=== PATIENT | female | born 1985 | race Hispanic/Latino ===

== ENCOUNTER 2017-10-19 07:49 | Emergency (ER) | payer OTHER ==
[~2017-10-19] VITALS: Ht 144.8 cm; Wt 65.0 kg
[~2017-10-19 07:49] MED LIST: BENADRYL 50MG C50 MG OR; BENADRYL1 CRE EX; CIPRO XR500 MG PO; CIPRO500 MG PO; CIPROFLOXACN250 MG PO; CIPROFLOXACN500 MG PO; CLARINEX5 MG OR; DAYQUIL OR; DEBROX6.5 % AD; DILAUDID 2MG2 MG/TA1 PO; FLOMAX0.4 M1 PO; KETOROLAC TROME10 MG PO; LORTAB 5-325 MG1 TAB PO; LORTAB 5/3255 MG PO; MEDDOSEPAK OR; NO; NO HOME MEDS; PRE-NATAL OR; STERAPRED DS10 MG OR; TAGAMET300 MG OR; THERAFL OR; TORADOL PO; ULTRAM50 M1 PO; ZITHROMAX500 MG PO; ZOFRAN ODT4 MG OR; ZOFRAN ODT4 MG SL
[2017-10-19 08:52] LABS: URINE BILIRUBIN - DIPSTICK NEGATIVE (NEGATIVE); URINE BLOOD DIPSTICK LARGE (NEGATIVE); URINE COLOR YELLOW; URINE GLUCOSE - DIPSTICK NEGATIVE (NEGATIVE); URINE KETONE NEGATIVE (NEGATIVE); URINE LEUK ESTERASE NEGATIVE (NEGATIVE); URINE NITRITE - DIPSTICK NEGATIVE (Negative); URINE PH 5.5 (4.5-8.0); URINE PROTEIN - DIPSTICK NEGATIVE (NEG-TRACE); URINE SPECIFIC GRAVITY 1.025; URINE UROBILINOGEN - DIPSTICK 0.2 E.U./dL (0.2)
[2017-10-19 08:54] LABS: URINE CLARITY SL CLOUDY
[2017-10-19 08:55] LABS: HEMATOCRIT 40.7 % (37.0-47.0); IMMATURE GRANULOCYTES 0.5 % (0.0-1.0); MEAN CELL VOLUME 86.4 fL CALC (80.0-100.0); MEAN CORPUSCULAR HGB 29.7 pG CALC (26.0-32.0); MEAN CORPUSCULAR HGB CONC 34.4 g/L CALC (32.0-36.0); NEUT# 5.78 thou/uL (2.00-7.15); RED BLOOD COUNT 4.71 mill/uL (4.20-5.60); RED CELL DISTRI WIDTH 12.3 % (11.5-15.5); URINE RBC 25-50 RBC/hpf (0-5)
[2017-10-19 08:57] LABS: ANION GAP 16 (6-22 (CALC)); BUN 10 mg/dL (7-17); BUN/CREATININE RATIO 17 (12-20 (CALC)); CARBON DIOXIDE 22 mmol/l (22-30); CHLORIDE 104 mmol/l (95-108); CREATININE 0.6 mg/dL (0.5-1.0); GFR > 60 ML/MIN (>=60 (CALC)); GFR FOR AFR.AMER. > 60 ML/MIN (>=60 (CALC)); POTASSIUM 3.6 mmol/l (3.5-5.1); SODIUM 138 mmol/l (137-146)
[2017-10-19] MEDS ORDERED: TRAMADOL HYDROC50 MG PO (10:15)
[2017-10-19] MEDS ORDERED: TAMSULOSIN0.4 MG PO (10:15)
[2017-10-19 10:30] VITALS: BP 118/65
== END 2017-10-19 10:30 | disposition home or self-care (01) | DRG 694 ==
LOC: ED 07:49
PROVIDERS: Family Medicine
DX: N20.1 Calculus of ureter (principal); Z87.442 Personal history of urinary calculi

== ENCOUNTER 2024-02-18 09:43 | Emergency (ER) | payer OTHER ==
[~2024-02-18] VITALS: Ht 144.8 cm; Wt 117.0 kg
[2024-02-18] VITALS (7 sets, daily range): BP systolic 106–118; BP diastolic 72–83
[~2024-02-18 09:43] MED LIST changes: +TAMSULOSIN0.4 MG PO; +TRAMADOL HYDROC50 MG PO
[2024-02-18] MEDS ORDERED: KETOROLAC TROMETHAMINE 30 MG/ML SDV IV ONE (10:00)
[2024-02-18 10:16] LABS: BASO% 0.4 % (0-3); EOS% 1.4 % (0-8); HEMATOCRIT 42.5 % (37.0-47.0); HEMOGLOBIN 14.3 g/dl (12.0-16.0); IMMATURE GRANULOCYTES 0.2 % (0.0-5.0); LYMPH% 17.3 % (15-41); MEAN CELL VOLUME 88.4 fL CALC (80.0-100.0); MEAN CORPUSCULAR HGB 29.7 pG CALC (26.0-32.0); MEAN CORPUSCULAR HGB CONC 33.6 g/dL CAL (32.0-36.0); MONO% 3.8 % (2-13); NEUT# 8.06 thou/uL (2.00-7.15); NEUT% 76.9 % (42-76); RED BLOOD COUNT 4.81 mill/uL (4.20-5.60); RED CELL DISTRI WIDTH 12.4 % (11.5-15.5)
[2024-02-18 10:27] LABS: ALBUMIN 4.3 g/dL (3.2-5.0); BILIRUBIN, TOTAL 0.6 mg/dL (0.02-1.3); CREATININE 0.8 mg/dL (0.5-1.0); POTASSIUM 3.6 mmol/l (3.5-5.1); TOTAL PROTEIN 7.8 g/dL (6.3-8.2)
[2024-02-18] MEDS ORDERED: ONDANSETRON HCl 4 MG/2 ML SDV IV ONE (10:45)
[2024-02-18] MEDS ORDERED: SODIUM CHLORIDE 0.9% 1,000 ML IV ONE (10:50)
[2024-02-18] MEDS ORDERED: MORPHINE SULFATE 4 MG/ML VIAL IV ONE (10:50)
[2024-02-18 11:24] LABS: URINE BILIRUBIN - DIPSTICK Negative (NEGATIVE); URINE BLOOD DIPSTICK Moderate (NEGATIVE); URINE GLUCOSE - DIPSTICK Negative (NEGATIVE); URINE KETONE Negative (NEGATIVE); URINE LEUK ESTERASE Negative (NEGATIVE); URINE NITRITE - DIPSTICK Negative (Negative); URINE PH 5.5 (4.5-8.0); URINE PROTEIN - DIPSTICK 30 mg/dL (NEG-TRACE); URINE SPECIFIC GRAVITY 1.025; URINE UROBILINOGEN - DIPSTICK 0.2 E.U./dL (0.2)
[2024-02-18 11:25] LABS: URINE COLOR Yellow
[2024-02-18 11:29] LABS: URINE MUCUS FEW hpf (NONE-FEW); URINE SQUAMOUS EPITHELIAL CELL FEW EPI/hpf (0-FEW)
[2024-02-18] MEDS ORDERED: TAMSULOSIN0.4 MG PO (12:23)
[2024-02-18] MEDS ORDERED: TORADOL PO (12:23)
[2024-02-18] MEDS ORDERED: ZOFRAN4 MG/TAB PO (12:23)
[2024-02-18] MEDS ORDERED: HYDROCO/APAP1 TA9 PO (12:23)
== END 2024-02-18 13:49 | disposition home or self-care (01) | DRG 694 ==
LOC: ED 09:43
PROVIDERS: Family Medicine
DX: N13.2 Hydronephrosis with renal and ureteral calculous obstruction (principal); Z87.442 Personal history of urinary calculi

== ENCOUNTER 2024-02-21 06:49 | Emergency (ER) | payer OTHER ==
[~2024-02-21] VITALS: Ht 144.8 cm; Wt 54.0 kg
[2024-02-21] VITALS (7 sets, daily range): BP systolic 110–133; BP diastolic 77–91
[~2024-02-21 06:49] MED LIST changes: +HYDROCO/APAP1 TA9 PO; +ZOFRAN4 MG/TAB PO
[2024-02-21] MEDS ORDERED: SODIUM CHLORIDE 0.9% 1,000 ML IV ONE (07:20)
[2024-02-21] MEDS ORDERED: ONDANSETRON HCl 4 MG/2 ML SDV IV ONE (07:20)
[2024-02-21] MEDS ORDERED: KETOROLAC TROMETHAMINE 30 MG/ML SDV IV ONE (07:20)
[2024-02-21 07:26] LABS: BASO% 0.3 % (0-3); HEMATOCRIT 38.5 % (37.0-47.0); IMMATURE GRANULOCYTES 0.2 % (0.0-5.0); LYMPH% 15.5 % (15-41); MEAN CELL VOLUME 88.1 fL CALC (80.0-100.0); MEAN CORPUSCULAR HGB 29.7 pG CALC (26.0-32.0); MEAN CORPUSCULAR HGB CONC 33.8 g/dL CAL (32.0-36.0); MONO% 4.4 % (2-13); NEUT# 8.39 thou/uL (2.00-7.15); NEUT% 76.6 % (42-76); RED BLOOD COUNT 4.37 mill/uL (4.20-5.60)
[2024-02-21 07:42] LABS: ALBUMIN 4.1 g/dL (3.2-5.0); BILIRUBIN, TOTAL 0.7 mg/dL (0.02-1.3); CREATININE 0.7 mg/dL (0.5-1.0); POTASSIUM 3.9 mmol/l (3.5-5.1); TOTAL PROTEIN 7.6 g/dL (6.3-8.2)
[2024-02-21 08:21] LABS: URINE BILIRUBIN - DIPSTICK Negative (NEGATIVE); URINE BLOOD DIPSTICK Moderate (NEGATIVE); URINE GLUCOSE - DIPSTICK Negative (NEGATIVE); URINE KETONE Negative (NEGATIVE); URINE NITRITE - DIPSTICK Negative (Negative); URINE PH 5.5 (4.5-8.0); URINE PROTEIN - DIPSTICK Trace mg/dL (NEG-TRACE); URINE SPECIFIC GRAVITY 1.025
[2024-02-21 08:22] LABS: URINE COLOR Yellow; URINE LEUK ESTERASE Small (NEGATIVE)
[2024-02-21 08:33] LABS: URINE BACTERIA FEW hpf; URINE MUCUS FEW hpf (NONE-FEW); URINE SQUAMOUS EPITHELIAL CELL FEW EPI/hpf (0-FEW)
[2024-02-21] MEDS ORDERED: cefTRIAXone SODIUM 2 GM in SODIUM CHLORIDE 0.9% 100 ML IV ONE (09:15)
[2024-02-21] MEDS ORDERED: OMNICEF300 MG PO (11:35)
[2024-02-21] MEDS ORDERED: MORPHINE SULFATE 4 MG/ML VIAL IV ONE (11:35)
== END 2024-02-21 12:14 | disposition home or self-care (01) | DRG 694 ==
LOC: ED 06:49
PROVIDERS: Family Medicine
DX: N20.1 Calculus of ureter (principal); Z87.442 Personal history of urinary calculi